=== PATIENT | female | born 1960 ===

== ENCOUNTER 2024-04-10 20:20 | Emergency (ER) | payer OTHER ==
[~2024-04-10] VITALS: Ht 149.9 cm; Wt 59.0 kg
[2024-04-10 20:23] VITALS: BP 150/94; PULSE 62; RESP 20; TEMP 97.7
[2024-04-10 21:00] LABS: BASOPHILS % (AUTO) 0.4 % (0.0-2.0); EOSINOPHILS % (AUTO) 2.4 % (1.0-6.0); HEMATOCRIT 40.2 % (36-46); HEMOGLOBIN 13.3 g/dL (12.0-16.0); LYMPHOCYTES # (AUTO) 1.8 K/uL (1.0-4.8); LYMPHOCYTES % (AUTO) 29.3 % (22.0-44.0); MEAN CORPUSCULAR HEMOGLOBIN 30.2 pg (26.0-34.0); MEAN CORPUSCULAR VOLUME 92 fL (80-100); MONOCYTES # (AUTO) 0.2 K/uL (0.1-1.0); NEUTROPHILS # (AUTO) 3.8 K/uL (1.8-7.7); NEUTROPHILS % (AUTO) 63.9 % (40.0-70.0); PLATELET COUNT (AUTO) 181 K/uL (150-450); RED BLOOD CELL COUNT(AUTO) 4.39 MIL/uL (4.00-5.20); RED CELL DISTRIBUTION WIDTH 13.6 % (11.5-14.5)
[2024-04-10 21:09] LABS: CALCIUM, TOTAL 9.3 mg/dL (8.8-10.5); CREATININE 1.04 mg/dL (0.60-1.30); POTASSIUM 3.7 mmol/L (3.5-5.1)
[2024-04-10 21:15] LABS: APPEARANCE,URINE CLEAR (CLEAR); BILIRUBIN,URINE NEGATIVE (NEGATIVE); COLOR,URINE YELLOW (YELLOW); GLUCOSE, URINE (UA) NEGATIVE (NEGATIVE); KETONES,URINE NEGATIVE (NEGATIVE); LEUKOCYTE ESTERASE ,URINE MODERATE (NEGATIVE); NITRATE,URINE NEGATIVE (NEGATIVE); OCCULT BLOOD,URINE NEGATIVE (NEGATIVE); PROTEIN,URINE NEGATIVE (NEGATIVE); UROBILINOGEN,URINE <=1.0 mg/dL (<=1.0)
[2024-04-10 21:22] LABS: TROPONIN I-HIGH SENSITIVITY Less Than 4 ng/L (<51)
[2024-04-10 21:29] LABS: BACTERIA,URINE None Seen /HPF (None Seen); RBC,URINE None Seen /HPF (0-2)
[2024-04-10 21:30] LABS: SQUAMOUS EPITHELIAL CELL,UR Few /LPF (None Seen); URIC ACID CRYSTALS,URINE Few /LPF (None Seen)
[2024-04-10] MEDS: ONDANSETRON HCL 4 MG/2 ML VIAL IVP ONE (21:53)
[2024-04-10] MEDS: ACETAMINOPHEN 500 MG TABLET PO ONE (21:53)
[2024-04-10] MEDS: MECLIZINE HCL 25 MG TABLET PO ONE (21:53)
[2024-04-10] MEDS ORDERED: MECL-134 PO (21:54)
[2024-04-10] MEDS ORDERED: ONDA-104 PO (21:54)
[2024-04-10] MEDS ORDERED: MELA1TAB52 PO (21:54)
[2024-04-10] MEDS ORDERED: ACET-66 PO (21:54)
== END 2024-04-10 22:27 | disposition home or self-care (01) ==
LOC: EMS 20:20
DX: G47.00 Insomnia, unspecified (principal); R42 Dizziness and giddiness
CPT/HCPCS: 99284; 96374; 80048; 81001; 83690; 84484; 85025; 36415; 87086; 87186; 93005; J2405